=== PATIENT | female | born 1945 | race Caucasian/White ===

== ENCOUNTER 2016-03-20 08:40 | Outpatient (CLI) | payer MEDICARE, OTHER | END 2016-03-20 08:41 | disposition home or self-care (01) | DX: I10 Essential (primary) hypertension (principal); M81.0 Age-related osteoporosis without current pathological fracture ==

== ENCOUNTER 2016-04-28 13:10 | Outpatient (CLI) | payer MEDICARE, OTHER | END 2016-04-28 13:11 | disposition home or self-care (01) | DX: M81.0 Age-related osteoporosis without current pathological fracture (principal) ==

== ENCOUNTER 2016-04-28 13:11 | Outpatient (CLI) | payer MEDICARE, OTHER | END 2016-04-28 13:12 | disposition home or self-care (01) | DX: Z12.31 Encounter for screening mammogram for malignant neoplasm of breast (principal) ==

== ENCOUNTER 2018-05-07 07:31 | Outpatient (CLI) | payer MEDICARE, OTHER ==
[2018-05-07 07:59] LABS: ALBUMIN/GLOBULIN RATIO 1.2 (1.0-2.2); CALCIUM 9.3 mg/dL (8.5-10.3); CREATININE 0.6 mg/dL (0.4-1.0); TOTAL PROTEIN 7.4 g/dL (6.7-8.2)
== END 2018-05-07 07:32 | disposition home or self-care (01) ==
LOC: LAB 07:31
PROVIDERS: ATTEND Physician Assistant Medical
DX: I10 Essential (primary) hypertension (principal)
CPT/HCPCS: 36415; 80053

== ENCOUNTER 2018-05-20 07:39 | Outpatient (CLI) | payer MEDICARE, OTHER | END 2018-05-20 07:40 | disposition home or self-care (01) | LOC: LAB 07:39 | PROVIDERS: ATTEND Physician Assistant Medical | DX: Z53.9 Procedure and treatment not carried out, unspecified reason (principal) ==

== ENCOUNTER 2018-05-21 09:29 | Outpatient (CLI) | payer MEDICARE, OTHER ==
[2018-05-21 09:50] LABS: BASOPHILS % (AUTO) 0.5 %; EOSINOPHILS % (AUTO) 0.2 %; HGB - HEMOGLOBIN 13.9 g/dL (12.0-16.0); LYMPHOCYTES # (AUTO) 1.4 10^3/uL (1.5-3.5); MEAN CORPUSCULAR HEMOGLOBIN 32.3 pg (27.0-31.0); MEAN CORPUSCULAR HGB CONC 33.8 g/dL (32.0-36.0); MEAN CORPUSCULAR VOLUME 95.7 fL (81.0-99.0); MEAN PLATELET VOLUME 7.8 fL (7.9-10.8); MONOCYTES # (AUTO) 0.5 10^3/uL (0.0-1.0); MONOCYTES % (AUTO) 6.5 %; NEUTROPHILS # (AUTO) 5.5 10^3/uL (1.5-6.6); NEUTROPHILS % (AUTO) 73.8 %; PLT - PLATELET COUNT 245 10^3/uL (130-450); RED BLOOD COUNT 4.29 10^6/uL (4.20-5.40); RED CELL DISTRIBUTION WIDTH 12.9 % (12.0-15.0); WHITE BLOOD COUNT 7.4 x10^3/uL (4.8-10.8)
[2018-05-21 10:10] LABS: ALBUMIN 4.1 g/dL (3.2-5.5); ALBUMIN/GLOBULIN RATIO 1.2 (1.0-2.2); BILIRUBIN,TOTAL 0.8 mg/dL (0.2-1.0); CALCIUM 9.6 mg/dL (8.5-10.3); CREATININE 0.6 mg/dL (0.4-1.0); TOTAL PROTEIN 7.4 g/dL (6.7-8.2)
== END 2018-05-21 09:30 | disposition home or self-care (01) ==
LOC: LAB 09:29
PROVIDERS: ATTEND Physician Assistant Medical
DX: E87.6 Hypokalemia (principal); M81.0 Age-related osteoporosis without current pathological fracture; I10 Essential (primary) hypertension
CPT/HCPCS: 36415; 80048; 80053; 82306; 85025

== ENCOUNTER 2018-06-15 08:10 | Outpatient (CLI) | payer MEDICARE, OTHER ==
--- NOTE | 2018-06-15 10:33 | Mammography Report ---
Reason: SCREENING MAMMO Procedure Date: 06/15/2018 Accession Number: [id number] / [id number] Procedure: ELIZABETH - Screening Mammo w/Vasu CPT Code: FULL RESULT: EXAM: Screening Mammo w/Vasu DATE: 06/15/2018 8:42 AM CLINICAL HISTORY: Routine screening TECHNIQUE: (B) - Bilateral CC and MLO views were obtained. COMPARISON: 04/28/2016, 02/08/2015, 12/28/2013. PARENCHYMAL PATTERN: (A) - The breasts demonstrate scattered fibroglandular densities bilaterally. FINDINGS: There is no significant interval change. There are no suspicious masses, calcifications, or areas of distortion. IMPRESSION: Negative examination. BI-RADS category 1. RECOMMENDATION: (ANNUAL) - Recommend routine annual screening mammography. BI-RADS CATEGORY: (1) - Negative. STANDARD QUALIFYING STATEMENTS: 1. This examination was not reviewed with the aid of Computer-Aided Detection (CAD). 2. A negative or benign imaging report should not preclude biopsy if clinically suspicious findings are present. 3. Dense breasts may obscure an underlying neoplasm. 4. This examination was reviewed with the aid of 3D breast imaging (tomosynthesis).
== END 2018-06-15 08:11 | disposition home or self-care (01) ==
LOC: DI 08:10
DX: Z12.31 Encounter for screening mammogram for malignant neoplasm of breast (principal)
CPT/HCPCS: 77063; 77067

== ENCOUNTER 2018-06-15 08:12 | Outpatient (CLI) | payer MEDICARE, OTHER ==
--- NOTE | 2018-06-15 14:56 | DEXA Report ---
Reason: BONE DISEASE Procedure Date: 06/15/2018 Accession Number: [id number] / [id number] Procedure: DEX - Dexa Spine and/or Hip CPT Code: FULL RESULT: EXAM: Dexa Spine and/or Hip DATE: 06/15/2018 8:52 AM CLINICAL HISTORY: Follow-up osteoporosis. Currently on Actonel. TECHNIQUE: Dual energy x-ray absorptiometry (DXA) was performed on a [employer] System. Regions measured are the AP Spine, femoral neck, and if needed forearm. COMPARISON: 04/28/2016 In accordance with the International Society for Clinical Densitometry (ISCD) guidelines, data from previous exams may be reanalyzed using current recommendations and techniques. This is done to allow a more accurate basis for comparison with the current study. FINDINGS: The data for the lumbar spine is as follows: BMD (g/cm/cm) T-SCORE Z-SCORE REGION L1 0.734 -3.3 -2.0 L2 0.846 -2.9 -1.6 L3 0.958 -2.0 -0.7 L4 0.898 -2.5 -1.2 TOTAL 0.863 -2.6 -1.3 NOTE: All evaluable vertebrae are used for classification The data for the hip is as follows: BMD (g/cm/cm) T-SCORE Z-SCORE REGION Neck 0.723 -2.3 -0.7 TOTAL 0.798 -1.7 -0.3 NOTE: The femoral neck or total proximal femur, whichever is lowest, is used for classification. DXA RESULTS SUMMARY: Spine SCAN DATE [age] BMD CHANGE VS CHANGE VS PREVIOUS PREVIOUS % 5/15[birth year]2018 [age] 0.863 -0.003 -0.3 04/28/2016 [age] 0[age]866 * Denotes significant change at the 95% confidence level. Denotes dissimilar scan types or analysis methods. DXA RESULTS SUMMARY: Hip SCAN DATE AGE BMD CHANGE VS CHANGE VS PREVIOUS PREVIOUS % [birth year]2018 [age] 0.798 -0.028 -3.4 [birth year]28[birth year]2016 70.7 0[age]826 * Denotes significant change at the 95% confidence level. Denotes dissimilar scan types or analysis methods. IMPRESSION: THE WHO CLASSIFICATION BASED ON THE INTERNATIONAL REFERENCE STANDARD IS OSTEOPOROSIS (REFERENCE LUMBAR SPINE). THE FRACTURE RISK IS HIGH. RECOMMENDATION: Patients with diagnosis of osteoporosis or osteopenia should have regular bone mineral density assessment. For those eligible for Medicare, routine testing is allowed once every 2 years. Testing frequency can be increased for patients who have rapidly progressing disease or for those who are receiving medical therapy to restore bone mass. COMMENT: World Health Organization (WHO) definitions for osteoporosis and osteopenia: NORMAL BMD: T-score at -1.0 or higher, fracture risk is low OSTEOPENIA BMD: T-score between -1.0 and -2.5, fracture risk is increased. OSTEOPOROSIS BMD: T-score at -2.5 or lower, fracture risk is high. National Osteoporosis Foundation recommends: 1. Obtain adequate dietary calcium (at least 1200 mg per day) and vitamin D (400-800 international units per day). 2. Participate, as appropriate, in regular weightbearing and muscle-strengthening exercise. 3. Avoid tobacco use and reduce alcohol and caffeine intake. 4. For more detailed information see the website at www.NOF.org.
== END 2018-06-15 08:13 | disposition home or self-care (01) ==
LOC: DI 08:12
PROVIDERS: ATTEND Physician Assistant Medical
DX: M81.0 Age-related osteoporosis without current pathological fracture (principal)
CPT/HCPCS: 77080

== ENCOUNTER 2018-07-22 08:00 | Outpatient (CLI) | payer MEDICARE, OTHER ==
[2018-07-22 13:03] LABS: CALCIUM 9.7 mg/dL (8.5-10.3); CREATININE 0.6 mg/dL (0.4-1.0)
== END 2018-07-22 08:01 | disposition home or self-care (01) ==
LOC: LAB.WCP 08:00
PROVIDERS: ATTEND Physician Assistant Medical
DX: E87.6 Hypokalemia (principal)
CPT/HCPCS: 36415; 80048

== ENCOUNTER 2018-08-20 10:04 | Outpatient (CLI) | payer MEDICARE, OTHER ==
[2018-08-20 13:06] LABS: CALCIUM 9.7 mg/dL (8.5-10.3); CREATININE 0.6 mg/dL (0.4-1.0)
== END 2018-08-20 23:59 | disposition home or self-care (01) ==
LOC: LAB.WCP 10:04
PROVIDERS: ATTEND Physician Assistant Medical
DX: E87.6 Hypokalemia (principal)
CPT/HCPCS: 36415; 80048

== ENCOUNTER 2020-08-03 07:34 | Outpatient (CLI) | payer MEDICARE, OTHER ==
[2020-08-03 07:58] LABS: BASOPHILS % (AUTO) 0.4 %; EOSINOPHILS # (AUTO) 0.1 10^3/uL (0.0-0.7); EOSINOPHILS % (AUTO) 1.3 %; HCT - HEMATOCRIT 41.5 % (37.0-47.0); HGB - HEMOGLOBIN 13.6 g/dL (12.0-16.0); LYMPHOCYTES # (AUTO) 1.6 10^3/uL (1.5-3.5); LYMPHOCYTES % (AUTO) 21.2 %; MEAN CORPUSCULAR HEMOGLOBIN 32.3 pg (27.0-31.0); MEAN CORPUSCULAR HGB CONC 32.8 g/dL (32.0-36.0); MEAN CORPUSCULAR VOLUME 98.6 fL (81.0-99.0); MEAN PLATELET VOLUME 9.6 fL (7.9-10.8); MONOCYTES # (AUTO) 0.4 10^3/uL (0.0-1.0); MONOCYTES % (AUTO) 5.9 %; NEUTROPHILS # (AUTO) 5.3 10^3/uL (1.5-6.6); NEUTROPHILS % (AUTO) 70.8 %; PLT - PLATELET COUNT 243 10^3/uL (130-450); RED BLOOD COUNT 4.21 10^6/uL (4.20-5.40); RED CELL DISTRIBUTION WIDTH 13.7 % (12.0-15.0); WHITE BLOOD COUNT 7.4 x10^3/uL (4.8-10.8)
[2020-08-03 08:08] LABS: ALBUMIN 4.2 g/dL (3.2-5.5); ALBUMIN/GLOBULIN RATIO 1.4 (1.0-2.2); ALKALINE PHOSPHATASE 86 IU/L (42-121); ALT ALANINE AMINOTRANSFERASE 21 IU/L (10-60); AST ASPARTATE AMINOTRANSFERASE 18 IU/L (10-42); BILIRUBIN,TOTAL 0.7 mg/dL (0.2-1.0); BUN - BLOOD UREA NITROGEN 24 mg/dL (6-20); CALCIUM 9.4 mg/dL (8.5-10.3); CARBON DIOXIDE - CO2 25 mmol/L (21-32); CHLORIDE 100 mmol/L (101-111); CHOL/HDL RATIO 2.8 (<4.4); CHOLESTEROL 229 mg/dL; CREATININE 0.7 mg/dL (0.4-1.0); GFR - MDRD 81 (>89); GLUCOSE 99 mg/dL (70-100); HDL CHOLESTEROL 83 mg/dL; LDL CHOLESTEROL,CALCULATED 126 mg/dL; LDL/HDL RATIO 1.5 (<4.4); POTASSIUM 3.6 mmol/L (3.5-5.0); SODIUM 137 mmol/L (135-145); TOTAL PROTEIN 7.2 g/dL (6.7-8.2); TRIGLYCERIDES 99 mg/dL; VLDL CHOLESTEROL 20 mg/dL
== END 2020-08-03 07:35 | disposition home or self-care (01) ==
LOC: LAB 07:34
PROVIDERS: ATTEND Physician Assistant Medical
DX: I10 Essential (primary) hypertension (principal)
CPT/HCPCS: 36415; 80053; 80061; 83721; 85025

== ENCOUNTER 2021-01-08 07:36 | Outpatient (CLI) | payer MEDICARE, OTHER ==
[2021-01-08 07:59] LABS: BASOPHILS % (AUTO) 0.4 %; EOSINOPHILS # (AUTO) 0.1 10^3/uL (0.0-0.7); EOSINOPHILS % (AUTO) 0.7 %; HGB - HEMOGLOBIN 13.9 g/dL (12.0-16.0); LYMPHOCYTES # (AUTO) 1.8 10^3/uL (1.5-3.5); LYMPHOCYTES % (AUTO) 23.3 %; MEAN CORPUSCULAR HEMOGLOBIN 32.9 pg (27.0-31.0); MEAN CORPUSCULAR HGB CONC 33.9 g/dL (32.0-36.0); MEAN CORPUSCULAR VOLUME 97.2 fL (81.0-99.0); MEAN PLATELET VOLUME 9.7 fL (7.9-10.8); MONOCYTES # (AUTO) 0.5 10^3/uL (0.0-1.0); MONOCYTES % (AUTO) 6.6 %; NEUTROPHILS # (AUTO) 5.3 10^3/uL (1.5-6.6); NEUTROPHILS % (AUTO) 68.6 %; PLT - PLATELET COUNT 228 10^3/uL (130-450); RED BLOOD COUNT 4.22 10^6/uL (4.20-5.40); RED CELL DISTRIBUTION WIDTH 12.5 % (12.0-15.0); WHITE BLOOD COUNT 7.7 x10^3/uL (4.8-10.8)
[2021-01-08 08:17] LABS: ALBUMIN 4.1 g/dL (3.2-5.5); ALBUMIN/GLOBULIN RATIO 1.3 (1.0-2.2); ALKALINE PHOSPHATASE 90 IU/L (42-121); ALT ALANINE AMINOTRANSFERASE 24 IU/L (10-60); AST ASPARTATE AMINOTRANSFERASE 22 IU/L (10-42); BILIRUBIN,TOTAL 0.9 mg/dL (0.2-1.0); BUN - BLOOD UREA NITROGEN 22 mg/dL (6-20); CALCIUM 9.5 mg/dL (8.5-10.3); CARBON DIOXIDE - CO2 28 mmol/L (21-32); CHLORIDE 96 mmol/L (101-111); CHOL/HDL RATIO 2.5 (<4.4); CHOLESTEROL 210 mg/dL; CREATININE 0.6 mg/dL (0.4-1.0); GFR - MDRD 97 (>89); GLUCOSE 97 mg/dL (70-100); HDL CHOLESTEROL 85 mg/dL; LDL CHOLESTEROL,CALCULATED 109 mg/dL; LDL/HDL RATIO 1.3 (<4.4); POTASSIUM 3.7 mmol/L (3.5-5.0); SODIUM 132 mmol/L (135-145); TOTAL PROTEIN 7.3 g/dL (6.7-8.2); TRIGLYCERIDES 78 mg/dL; VLDL CHOLESTEROL 16 mg/dL
== END 2021-01-08 07:37 | disposition home or self-care (01) ==
LOC: LAB 07:36
PROVIDERS: ATTEND Nurse Practitioner Acute Care
DX: I10 Essential (primary) hypertension (principal); E78.5 Hyperlipidemia, unspecified
CPT/HCPCS: 36415; 80053; 80061; 83721; 84443; 85025

== ENCOUNTER 2021-01-15 11:35 | Outpatient (CLI) | payer MEDICARE, OTHER ==
[2021-01-15 11:58] LABS: CALCIUM 9.8 mg/dL (8.5-10.3); CREATININE 0.7 mg/dL (0.4-1.0); POTASSIUM 3.9 mmol/L (3.5-5.0)
== END 2021-01-15 11:36 | disposition home or self-care (01) ==
LOC: LAB 11:35
PROVIDERS: ATTEND Nurse Practitioner Acute Care
DX: I10 Essential (primary) hypertension (principal)
CPT/HCPCS: 36415; 80048

== ENCOUNTER 2021-04-10 10:40 | Outpatient (CLI) | payer MEDICARE, OTHER ==
[2021-04-10 11:22] LABS: ALBUMIN 3.9 g/dL (3.2-5.5); ALBUMIN/GLOBULIN RATIO 1.2 (1.0-2.2); BILIRUBIN,TOTAL 0.9 mg/dL (0.2-1.0); CALCIUM 9.8 mg/dL (8.5-10.3); CREATININE 0.7 mg/dL (0.4-1.0); TOTAL PROTEIN 7.2 g/dL (6.7-8.2)
== END 2021-04-10 10:41 | disposition home or self-care (01) ==
LOC: LAB 10:40
PROVIDERS: ATTEND Nurse Practitioner Acute Care
DX: I10 Essential (primary) hypertension (principal)
CPT/HCPCS: 36415; 80053

== ENCOUNTER 2021-05-09 10:27 | Outpatient (CLI) | payer MEDICARE, OTHER ==
[2021-05-09 10:48] LABS: CALCIUM 9.4 mg/dL (8.5-10.3); CREATININE 0.5 mg/dL (0.4-1.0); POTASSIUM 4.2 mmol/L (3.5-5.0)
== END 2021-05-09 10:28 | disposition home or self-care (01) ==
LOC: LAB 10:27
PROVIDERS: ATTEND Nurse Practitioner Acute Care
DX: I10 Essential (primary) hypertension (principal)
CPT/HCPCS: 36415; 80048

== ENCOUNTER 2021-06-11 22:48 | Emergency (ER) | payer MEDICARE, OTHER ==
[2021-06-11 22:56] VITALS: BP 165/103
--- NOTE | 2021-06-11 23:24 | ED Physician Documentation ---
PD HPI OPHTHO - Stated complaint Stated Complaint: RT EYE PX/BLOOD - Chief complaint Chief Complaint: Heent - History obtained from History obtained from: Patient - History of Present Illness Timing - onset: How many hours ago (1-2) Timing - duration: Hours Timing - details: Abrupt onset Pain level now: 0 Location: Right Contributing factors: No: Wears glasses, Wears contacts Recently seen: Not recently seen - Additional information Additional information: patient c/o right eye redness and irritation x 1-2 hours, onset after simply rubbing her eye. Denies pain, denies FB sensation, denies visual changes, denies h/o similar symptoms. She does not take blood thinning medication(s) Review of Systems Eyes: reports: Irritation. denies: Loss of vision, Decreased vision, Photophobia, Discharge PD PAST MEDICAL HISTORY - Past Medical History Past Medical History: No - Present Medications Home Medications: Ambulatory Orders Medication Instructions Recorded Confirmed Losartan Potassium [Cozaar] 06/11/21 Metoprolol Succinate 100 mg PO 06/11/21 - Allergies Allergies/Adverse Reactions: Allergies Allergy/AdvReac Type Severity Reaction Status Date / Time No Known Drug Allergies Allergy Verified 06/11/21 22:53 PD ED PE NORMAL - Vitals Vital signs reviewed: Yes - General General: Alert and oriented X 3, No acute distress, Well developed/nourished - HEENT HEENT: PERRL, EOMI PD ED PE EXPANDED - Eyes Eyes: Visual acuity - see nn, PERRL, Right eye, Subconj hemorrhage (near-360 elevated subconjunctival hemorrhage (sparing of midline upper (cranial-most) area of sclera). ), Anterior chambers clear. No: Hyphema Results - Vitals Vitals: Oxygen O2 Source Room air PD MEDICAL DECISION MAKING - ED course Complexity details: considered differential, d/w patient ED course: right eye atraumatic subconjunctival hemorrhage (rubbed eye, but no trauma per se). No change in vision, no hyphema. She is not on blood thinners and is not experiencing any discomfort except for mild irritation. No testing nor specific treatment indicated at this time, diagnosis/prognosis discussed, return precautions discussed, advised to follow up with PMD for reevaluation and possible ophthalmology referral at discretion of PMD Departure - Departure Disposition: 01 Home, Self Care Clinical Impression: Subconjunctival hemorrhage of right eye Condition: Good Instructions: ED Eye Injury Subconj Hemorrhage Follow-Up: Kike Pedraza MD [Provider Admit Priv/Credential] - Rupa Kaba PA-C [Primary Care Provider] - Comments: You should follow up with an muck hauler for reevaluation. This might require a referral from your primary care provider. You can follow up with your primary care provider initially for the reevaluation and then they can refer you to an muck hauler if appropriate (if it is improving, then a referral might not be necessary). Before going to sleep, apply a thin layer of antibiotic eye ointment (such as the erythromycin eye ointment provided) to the lower eye lid; this is because I notice that when you close your eye, a thin sliver of the area that is swollen is not covered by the lower lid, and this will dry out if not kept moistened (which will then lead to other problems). The bleeding should gradually reabsorb over the next few weeks on its own. Discharge Date/Time: 06/12/21 00:05
[2021-06-11] MEDS ORDERED: BACITRACIN/POLYMYXIN OPHTH OINT 3.5 GM RIGHTEYE STA (23:46)
[2021-06-11] MEDS ORDERED: ERYTHROMYCIN OPHTH OINT 1 GM TUBE RIGHTEYE STA (23:52)
== END 2021-06-12 00:05 | disposition home or self-care (01) ==
LOC: ED 22:48
DX: H11.31 Conjunctival hemorrhage, right eye (principal)
CPT/HCPCS: 99281; 99282; J3490

== ENCOUNTER 2021-07-02 08:15 | Outpatient (CLI) | payer MEDICARE, OTHER | END 2021-07-02 08:16 | disposition home or self-care (01) | LOC: LAB 08:15 | PROVIDERS: ATTEND Nurse Practitioner Acute Care | DX: I10 Essential (primary) hypertension (principal) | CPT/HCPCS: 36415; 82088; 84244 ==

== ENCOUNTER 2021-08-01 08:51 | Outpatient (CLI) | payer MEDICARE, OTHER ==
[2021-08-01 09:18] LABS: CALCIUM 9.5 mg/dL (8.5-10.3); CREATININE 0.6 mg/dL (0.4-1.0); POTASSIUM 3.7 mmol/L (3.5-5.0)
== END 2021-08-01 08:52 | disposition home or self-care (01) ==
LOC: LAB 08:51
PROVIDERS: ATTEND Nurse Practitioner Acute Care
DX: I10 Essential (primary) hypertension (principal)
CPT/HCPCS: 36415; 80048

== ENCOUNTER 2021-08-08 08:49 | Outpatient (CLI) | payer MEDICARE, OTHER ==
[2021-08-08 09:04] LABS: BASOPHILS % (AUTO) 0.2 %; EOSINOPHILS % (AUTO) 0.5 %; HCT - HEMATOCRIT 41.5 % (37.0-47.0); LYMPHOCYTES # (AUTO) 1.8 10^3/uL (1.5-3.5); LYMPHOCYTES % (AUTO) 21.8 %; MEAN CORPUSCULAR HEMOGLOBIN 32.4 pg (27.0-31.0); MEAN CORPUSCULAR HGB CONC 33.7 g/dL (32.0-36.0); MEAN CORPUSCULAR VOLUME 96.1 fL (81.0-99.0); MEAN PLATELET VOLUME 9.6 fL (7.9-10.8); MONOCYTES # (AUTO) 0.6 10^3/uL (0.0-1.0); MONOCYTES % (AUTO) 6.5 %; NEUTROPHILS % (AUTO) 70.6 %; PLT - PLATELET COUNT 241 10^3/uL (130-450); RED BLOOD COUNT 4.32 10^6/uL (4.20-5.40); RED CELL DISTRIBUTION WIDTH 12.8 % (12.0-15.0); WHITE BLOOD COUNT 8.5 x10^3/uL (4.8-10.8)
== END 2021-08-08 08:50 | disposition home or self-care (01) ==
LOC: LAB 08:49
PROVIDERS: ATTEND Ophthalmology
DX: H53.2 Diplopia (principal)
CPT/HCPCS: 36415; 84443; 85025; 85651; 86140

== ENCOUNTER 2021-09-03 10:04 | Outpatient (CLI) | payer MEDICARE, OTHER ==
[2021-09-03 10:53] LABS: CALCIUM 9.6 mg/dL (8.5-10.3); CREATININE 0.6 mg/dL (0.4-1.0); POTASSIUM 4.1 mmol/L (3.5-5.0)
== END 2021-09-03 10:05 | disposition home or self-care (01) ==
LOC: LAB 10:04
PROVIDERS: ATTEND Nurse Practitioner Acute Care
DX: I10 Essential (primary) hypertension (principal)
CPT/HCPCS: 36415; 80048

== ENCOUNTER 2022-07-21 07:37 | Outpatient (CLI) | payer MEDICARE, OTHER ==
[2022-07-21 07:58] LABS: BASOPHILS % (AUTO) 0.3 %; EOSINOPHILS # (AUTO) 0.1 10^3/uL (0.0-0.7); EOSINOPHILS % (AUTO) 1.2 %; HCT - HEMATOCRIT 41.6 % (37.0-47.0); HGB - HEMOGLOBIN 13.9 g/dL (12.0-16.0); LYMPHOCYTES # (AUTO) 1.6 10^3/uL (1.5-3.5); MEAN CORPUSCULAR HEMOGLOBIN 32.3 pg (27.0-31.0); MEAN CORPUSCULAR HGB CONC 33.4 g/dL (32.0-36.0); MEAN CORPUSCULAR VOLUME 96.5 fL (81.0-99.0); MEAN PLATELET VOLUME 9.6 fL (7.9-10.8); MONOCYTES # (AUTO) 0.4 10^3/uL (0.0-1.0); MONOCYTES % (AUTO) 7.1 %; NEUTROPHILS # (AUTO) 3.9 10^3/uL (1.5-6.6); NEUTROPHILS % (AUTO) 65.1 %; PLT - PLATELET COUNT 181 10^3/uL (130-450); RED BLOOD COUNT 4.31 10^6/uL (4.20-5.40); RED CELL DISTRIBUTION WIDTH 12.7 % (12.0-15.0)
[2022-07-21 08:31] LABS: ALBUMIN 3.8 g/dL (3.2-5.5); ALBUMIN/GLOBULIN RATIO 1.1 (1.0-2.2); ALKALINE PHOSPHATASE 77 IU/L (42-121); ALT ALANINE AMINOTRANSFERASE 21 IU/L (10-60); AST ASPARTATE AMINOTRANSFERASE 25 IU/L (10-42); BILIRUBIN,TOTAL 0.7 mg/dL (0.2-1.0); BUN - BLOOD UREA NITROGEN 23 mg/dL (6-20); CALCIUM 9.3 mg/dL (8.5-10.3); CARBON DIOXIDE - CO2 26 mmol/L (21-32); CHLORIDE 101 mmol/L (101-111); CHOL/HDL RATIO 2.5 (<4.4); CHOLESTEROL 202 mg/dL; CREATININE 0.7 mg/dL (0.4-1.0); GFR - MDRD 81 (>89); GLUCOSE 92 mg/dL (70-100); HDL CHOLESTEROL 82 mg/dL; LDL CHOLESTEROL,CALCULATED 105 mg/dL; LDL/HDL RATIO 1.3 (<4.4); SODIUM 134 mmol/L (135-145); TOTAL PROTEIN 7.3 g/dL (6.7-8.2); TRIGLYCERIDES 74 mg/dL; VLDL CHOLESTEROL 15 mg/dL
[2022-07-21 08:32] LABS: POTASSIUM 4.3 mmol/L (3.5-5.0)
== END 2022-07-21 07:38 | disposition home or self-care (01) ==
LOC: LAB 07:37
PROVIDERS: ATTEND Physician Assistant Medical
DX: I10 Essential (primary) hypertension (principal); E78.5 Hyperlipidemia, unspecified
CPT/HCPCS: 36415; 80053; 80061; 83721; 85025

== ENCOUNTER 2022-10-15 10:13 | Outpatient (CLI) | payer MEDICARE, OTHER ==
[2022-10-15 10:46] LABS: CREATININE 0.8 mg/dL (0.6-1.3); POTASSIUM 4.8 mmol/L (3.5-4.5)
== END 2022-10-15 10:14 | disposition home or self-care (01) ==
LOC: LAB 10:13
PROVIDERS: ATTEND Physician Assistant Medical
DX: E87.6 Hypokalemia (principal)
CPT/HCPCS: 36415; 80048

== ENCOUNTER 2023-10-08 07:24 | Outpatient (CLI) | payer MEDICARE, OTHER ==
[2023-10-08 07:33] LABS: BASOPHILS % (AUTO) 0.4 %; EOSINOPHILS % (AUTO) 0.5 %; HCT - HEMATOCRIT 39.3 % (37.0-47.0); HGB - HEMOGLOBIN 13.1 g/dL (12.0-16.0); LYMPHOCYTES # (AUTO) 1.9 10^3/uL (1.5-3.5); LYMPHOCYTES % (AUTO) 34.5 %; MEAN CORPUSCULAR HEMOGLOBIN 32.4 pg (27.0-31.0); MEAN CORPUSCULAR HGB CONC 33.3 g/dL (32.0-36.0); MEAN CORPUSCULAR VOLUME 97.3 fL (81.0-99.0); MEAN PLATELET VOLUME 9.1 fL (7.9-10.8); MONOCYTES # (AUTO) 0.5 10^3/uL (0.0-1.0); MONOCYTES % (AUTO) 9.1 %; NEUTROPHILS % (AUTO) 55.1 %; PLT - PLATELET COUNT 263 10^3/uL (130-450); RED BLOOD COUNT 4.04 10^6/uL (4.20-5.40); RED CELL DISTRIBUTION WIDTH 12.4 % (12.0-15.0); WHITE BLOOD COUNT 5.5 x10^3/uL (4.8-10.8)
[2023-10-08 07:48] LABS: ALBUMIN/GLOBULIN RATIO 1.3 (1.0-2.2); ALKALINE PHOSPHATASE 84 IU/L (42-121); ALT ALANINE AMINOTRANSFERASE 14 IU/L (10-60); AST ASPARTATE AMINOTRANSFERASE 14 IU/L (10-42); BILIRUBIN,TOTAL 0.5 mg/dL (0.2-1.0); BUN - BLOOD UREA NITROGEN 26 mg/dL (6-20); CALCIUM 9.7 mg/dL (8.5-10.3); CARBON DIOXIDE - CO2 28 mmol/L (21-32); CHLORIDE 99 mmol/L (101-111); CHOL/HDL RATIO 2.3 (<4.4); CHOLESTEROL 188 mg/dL; CREATININE 0.7 mg/dL (0.6-1.3); GFR - MDRD 81 (>89); GLUCOSE 92 mg/dL (74-104); HDL CHOLESTEROL 81 mg/dL; LDL CHOLESTEROL,CALCULATED 89 mg/dL; LDL/HDL RATIO 1.1 (<4.4); POTASSIUM 4.5 mmol/L (3.5-4.5); SODIUM 133 mmol/L (135-145); TOTAL PROTEIN 7.2 g/dL (6.4-8.9); TRIGLYCERIDES 91 mg/dL; VLDL CHOLESTEROL 18 mg/dL
== END 2023-10-08 07:25 | disposition home or self-care (01) ==
LOC: LAB 07:24
PROVIDERS: ATTEND Physician Assistant Medical
DX: E78.5 Hyperlipidemia, unspecified (principal); I10 Essential (primary) hypertension
CPT/HCPCS: 36415; 80053; 80061; 83721; 85025